=== PATIENT | female | born 1930 | race Caucasian/White ===

== ENCOUNTER 2016-12-21 15:45 | Emergency (ER) | payer MEDICARE, OTHER ==
--- NOTE | 2016-12-21 15:54 | ED Physician Documentation ---
General Adult - HISTORIAN Historian: patient - HPI Stated Complaint: right arm weakness and visual changes approx one hour ago Chief Complaint: Weakness Onset: hours (1) Timing: better Severity: mild Modifying Factors: none known Context: she states she was mowing and she had visual disturbance and right arm weak Location: right arm visual Further Comments: no Last known Well Date: 12/21/16 Last Known Well Time: 15:00 Last known Well Code/Unknown Code: Unknown - ROS CONST: no problems. denies: weakness, chills EYES/ENT: none CVS/RESP: none. denies: chest pain, shortness of breath, cough GI/: none MS/SKIN/LYMPH: none. denies: calf pain, neck pain NEURO/PSYCH: other (weakness in right arm ). 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 , HTN, Glucoma, ) Surgeries/Procedures: other Immunizations: referred to PCP Allergies/Adverse Reactions: Allergies Allergy/AdvReac Type Severity Reaction Status Date / Time gabapentin [From Neurontin] Allergy Verified 12/21/16 16:06 Penicillins Allergy Verified 03/29/15 16:23 tramadol HCl [From Ultram] Allergy Verified 03/29/15 16:23 Home Medications: Ambulatory Orders Medication Instructions Recorded Fluticasone Propionate [Flonase] 50 mcg INH 0903/29/15 Hydroxyurea [hydroxyure] 500 mg PO [id number] 03/29/15 Levothyroxine Sodium [Synthroid] 25 mcg PO 0600 03/29/15 Metoprolol Succinate [Toprol Xl] 50 mg PO DAILY 03/29/15 Pravastatin Sodium [Pravastatin 40 mg PO 0900 03/29/15 Sodium] Vit B12/Lmefolate Ca/Vit B6/B2 1 each PO QDAY 03/29/15 [l-Methyl-Mc Tablet] Aspirin [Alfredo] 81 mg PO DAILY 12/21/16 Cholecalciferol (Vitamin D3) 10,000 unit PO QDAY 12/21/16 [Vitamin D-3] Cromolyn Sodium 12/21/16 Losartan Potassium [Cozaar] 50 mg PO DAILY 12/21/16 - SOCIAL HX Smoking History: non-smoker Alcohol Use: none Drug Use: none - FAMILY HX Family History: No - VITAL SIGNS Vital Signs: Vital Signs Temp Pulse Resp BP Pulse Ox 184/101 03/29/15 18:54 - REVIEWED ASSESSMENTS Nursing Assessment Reviewed: Yes Vitals Reviewed: Yes ED Results Lab/Radiology - Radiology Radiology Impressions: COMPARISON: None available. TECHNIQUE: Noncontrast axial CT images of the head were performed. FINDINGS: There is global brain atrophy with prominence of the ventricular system and sulci. There is mild decreased attenuation in the periventricular white matter. No intracranial hemorrhage, mass, midline shift, hydrocephalus, or evidence of acute large vessel infarct. The mastoid air cells, middle ear spaces, and partially visualized paranasal sinuses are clear. IMPRESSION: Global brain atrophy and chronic ischemic changes, without evidence of acute infarct or other acute intracranial process. Electronically signed on Dec 21, 2016 4:47:01 PM CDT by: Brian Ma HISTORY: 86-year-old female with right arm weakness and visual changes. COMPARISON: None available. TECHNIQUE: 2 views of the chest were performed. FINDINGS: No pneumothorax, consolidative infiltrates, pleural effusions, or pulmonary edema. The lungs may be hyperexpanded. There are calcified granulomas in both lungs. The heart is not enlarged. IMPRESSION: Old granulomatous disease of the chest without evidence of acute intrathoracic process. Electronically signed on Dec 21, 2016 4:48:18 PM CDT by: Brian Ma General Adult Physical Exam - PHYSICAL EXAM GENERAL APPEARANCE: no distress EENT: eye inspection normal NECK: normal inspection RESPIRATORY: no resp distress CVS: reg rate & rhythm, heart sounds normal, equal pulses, no murmur ABDOMEN: soft, no organomegaly, normal bowel sounds, no abdominal bruit, no distension BACK: normal inspection, no CVA tenderness SKIN: warm/dry, normal color EXTREMITIES: non-tender, normal range of motion NEURO: oriented X3, CN's nml as tested, motor nml, sensation nml, mood/affect nml. No: disoriented, weakness/sensory loss, speech/cognition abnml, depressed mood/affect, facial droop, sensory/motor deficit, asymmetric reflexes Discharge Clincal Impression: TIA (transient ischemic attack) Qualifiers: Transient cerebral ischemia type: unspecified Qualified Code(s): G45.9 - Transient cerebral ischemic attack, unspecified Referrals: Ariella Michael MD [Primary Care Provider] - 2 Days Additional Instructions: Spoke with Dr Rivera about pt for Dr Michael about Eliquis and blood pressure control (she will call clinic Saturday) She will stop Asprin and take Eliquis 5 mg BID Comments: After discussion pt states she sees Dr Newell She is going to call her for further instruction Condition: Stable Disposition: 01 HOME, SELF-CARE Decision to Admit: NO Date of Decison to Admit: 12/21/16 Decision Time: 17:48
[2016-12-21] MEDS ORDERED: 0.9 % SODIUM CHLORIDE 1,000 ML IV SCH (16:00)
[2016-12-21 16:11] LABS: BASOPHILS % 0.4 (0.0-1.5); MEAN CORPUSCULAR VOLUME 104.7 fl (80.0-100.0); MONOCYTES % 4.7 % (0.0-11.0); NEUTROPHILS # 4.7 # k/uL (1.4-7.7)
[2016-12-21] MEDS ORDERED: 0.9 % SODIUM CHLORIDE 1,000 ML IV ONE (16:16)
[2016-12-21 16:26] LABS: eGFR (African) > 60; eGFR (Non-African) > 60
[2016-12-21 17:55] VITALS: BP 138/76
--- NOTE | 2016-12-21 18:14 | Diagnostic Imaging Report ---
BARBARA JACKSON [facility] [address] [facility] [address] [place], [place]. [address] Report Submission Date: Dec 21, 2016 4:48:18 PM CDT Patient Study Name: RADHA LOPEZ Date: Dec 21, 2016 4:16:32 PM CDT Modality Type: CR Gender: F Description: CHEST : 28 Institution: [facility] Physician: BARBARA JACKSON HISTORY: 86-year-old female with right arm weakness and visual changes. COMPARISON: None available. TECHNIQUE: 2 views of the chest were performed. FINDINGS: No pneumothorax, consolidative infiltrates, pleural effusions, or pulmonary edema. The lungs may be hyperexpanded. There are calcified granulomas in both lungs. The heart is not enlarged. IMPRESSION: Old granulomatous disease of the chest without evidence of acute intrathoracic process. Electronically signed on Dec 21, 2016 4:48:18 PM CDT by: Brian LÓPEZ
--- NOTE | 2016-12-21 18:15 | Diagnostic Imaging Report ---
BARBARA JACKSON [facility] [address] [facility] [address] [place], [place]. [address] Report Submission Date: Dec 21, 2016 4:47:01 PM CDT Patient Study Name: RADHA LOPEZ Date: Dec 21, 2016 4:08:24 PM CDT Modality Type: CT\SR Gender: F Description: CT BRAIN W/O CONTRAST : 29 Institution: [facility] Physician: BARBARA JACKSON HISTORY: 86-year-old female with right arm weakness and visual changes. COMPARISON: None available. TECHNIQUE: Noncontrast axial CT images of the head were performed. FINDINGS: There is global brain atrophy with prominence of the ventricular system and sulci. There is mild decreased attenuation in the periventricular white matter. No intracranial hemorrhage, mass, midline shift, hydrocephalus, or evidence of acute large vessel infarct. The mastoid air cells, middle ear spaces, and partially visualized paranasal sinuses are clear. IMPRESSION: Global brain atrophy and chronic ischemic changes, without evidence of acute infarct or other acute intracranial process. Electronically signed on Dec 21, 2016 4:47:01 PM CDT by: Brian LÓPEZ
[2016-12-22 06:39] LABS: APPEARANCE,URINE CLEAR (CLEAR); COLOR,URINE YELLOW (YELLOW); OCCULT BLOOD,URINE NEGATIVE (NEGATIVE); PH URINE 5.5 (5.0 - 8.0)
[2016-12-22 06:40] LABS: UROBILINOGEN URINE 0.2 Eu (0.2-1.0)
== END 2016-12-21 17:52 | disposition home or self-care (01) ==
LOC: ED 15:45
DX: G45.9 Transient cerebral ischemic attack, unspecified (principal)
CPT/HCPCS: 70450; 71020; 80053; 81002; 82550; 84484; 85025; 85610; 85730; J7030; 96360; 99283; S1016

== ENCOUNTER 2017-01-02 11:56 | Emergency (ER) | payer MEDICARE, OTHER ==
--- NOTE | 2017-01-02 12:10 | ED Physician Documentation ---
Foot Injury - HISTORIAN Historian: patient, friend - [facility] Stated Complaint: right foot pain Chief Complaint: Lower Extremity Problem Onset: hours (8) Where: home Severity: moderate Context: other (no known injury ) Associated Symptoms:: unable to bear weight. denies: tingling, numbness distally, swelling, snapping sensation, popping sensation, became dizzy, seizure , fainted Modifying Factors:: pain on movement - ROS CONST: denies: recent illness, fever, chills CVS/RESP: denies: chest pain, shortness of breath NEURO: headache. denies: head injury GI/: denies: problems urinating, nausea, vomiting MS/SKIN/LYMPH: other (she also has more unexplained brusing than usual due to a med change ). denies: neck pain, back pain, foot swelling, ankle swelling, rash - PAST HX Past History: other (HTN allergies and plt disorder ) Immunizations: referred to PCP Allergies/Adverse Reactions: Allergies Allergy/AdvReac Type Severity Reaction Status Date / Time gabapentin [From Neurontin] Allergy Verified 01/02/17 12:23 Penicillins Allergy Verified 01/02/17 12:23 tramadol HCl [From Ultram] Allergy Verified 01/02/17 12:23 Home Medications: Ambulatory Orders Medication Instructions Recorded Fluticasone Propionate [Flonase] 50 mcg INH 0903/29/15 Hydroxyurea [hydroxyure] 500 mg PO [id number] 03/29/15 Levothyroxine Sodium [Synthroid] 25 mcg PO 0600 03/29/15 Metoprolol Succinate [Toprol Xl] 50 mg PO DAILY 03/29/15 Pravastatin Sodium [Pravastatin 40 mg PO 0903/29/15 Sodium] Losartan Potassium [Cozaar] 50 mg PO DAILY 12/21/16 Aspirin [Alfredo] 325 mg PO DAILY 01/02/17 Cholecalciferol [Vitamin D-3] 1,000 units PO DAILY 01/02/17 Clopidogrel Bisulfate [Plavix] 75 mg PO DAILY 01/02/17 Propylene Glycol/Peg 400/Pf 1 drop EACHEYE 6XDAY PRN 01/02/17 [Systane 0.3-0.4% Eye Drops] - SOCIAL HX Smoking History: non-smoker Alcohol Use: none Drug Use: none - FAMILY HX Family History: none - VITAL SIGNS Vital Signs: Vital Signs Temp Pulse Resp BP Pulse Ox 138/76 12/21/16 17:52 - REVIEWED ASSESSMENTS Nursing Assessment Reviewed: Yes Vitals Reviewed: Yes ED Results Lab/Radiology - Radiology Radiology Impressions: Examination: Plain film foot History: discomfort Findings: 3 views of the foot demonstrates osteopenia. Advanced degenerative changes involving the 1st metatarsophalangeal articulation. Remaining articulations demonstrate degenerative changes. Single view demonstrates a lucency involving the distal margin of the proximal phalanx 1st digit. Lateral view demonstrates mild pes plateaus. No obvious soft tissue abnormality. Impression: Osteopenia and extensive degenerative changes most significantly involving the 1st metatarsophalangeal articulation. Possible fracture distal margin proximal phalanx 1st digit. Electronically signed on Jan 02, 2017 12:47:48 PM CDT by: Tarik Gaona Foot Injury Physical Exam - Physical Exam General Appearance: no acute distress, alert Foot: right foot: pain (great toe ), other (bruise on right great toe ), left foot: non-tender, normal inspection, normal range of motion, no evidence of injury, abrasions/lacerations, bone tenderness, deformity, soft tissue tenderness, swelling, N/A: infection, limited range of motion, nail injury, nodule Ankle: N/A: non-tender, normal inspection, normal range of motion, no evidence of injury, abrasions/laceration, bone tenderness, deformity, ecchymosis, joint effusion, limited range of motion, nodules, pain, soft tissue tenderness, swelling, other Gait: limited by pain, gait not tested d/t pain Neuro: sensation nml, motor nml Vascular: no vascular compromise Skin: other (bruise noted on right great toe, left knee and right eye ) Head/ENT: nml inspection Neck/Back: nml inspection Resp/CVS: chest non-tender, breath sounds nml, heart sounds nml, no resp. distress, lungs clear Abdomen: non-tender Discharge Clincal Impression: Foot pain, right Referrals: Eugenia Newell DO [Primary Care Provider] - 2 Days Condition: Stable Disposition: 01 HOME, SELF-CARE Decision to Admit: NO Date of Decison to Admit: 01/02/17 Decision Time: 13:00
[2017-01-02 13:20] VITALS: BP 169/96
--- NOTE | 2017-01-02 15:21 | Diagnostic Imaging Report ---
BARBARA JACKSON [facility] [address] [facility].[address] [address] Report Submission Date: Jan 02, 2017 12:47:48 PM CDT Patient Study Name: RADHA LOPEZ Date: Jan 02, 2017 12:26:16 PM CDT Modality Type: CR Gender: F Description: LOWER EXTREMITY : 28 Institution: [facility] Physician: BARBARA JACKSON Examination: Plain film foot History: discomfort Findings: 3 views of the foot demonstrates osteopenia. Advanced degenerative changes involving the 1st metatarsophalangeal articulation. Remaining articulations demonstrate degenerative changes. Single view demonstrates a lucency involving the distal margin of the proximal phalanx 1st digit. Lateral view demonstrates mild pes plateaus. No obvious soft tissue abnormality. Impression: Osteopenia and extensive degenerative changes most significantly involving the 1st metatarsophalangeal articulation. Possible fracture distal margin proximal phalanx 1st digit. Electronically signed on Jan 02, 2017 12:47:48 PM CDT by: Tarik LÓPEZ
== END 2017-01-02 13:19 | disposition home or self-care (01) ==
LOC: ED 11:56
DX: M79.671 Pain in right foot (principal)
CPT/HCPCS: 73630; L3260; 99283